=== PATIENT | female | born 1970 | race Caucasian/White ===

== ENCOUNTER 2016-11-24 23:09 | Emergency (ER) | payer BC ==
[~2016-11-24 23:09] MED LIST: CIPRO500 MG PO; COLACE100 MG PO; FLAGYL500 MG PO; HYDROCHLORATHIAZIDE; HYDROCHLOROTHIA25 MG PO; LISINOPRIL; LISINOPRIL10 MG PO; NORCO 5/325 TAB1 TAB PO; NORCO 5/3251 TA1 PO; PRENATAL1 EACH PO; VOLTAREN75 MG PO
[2016-11-24] MEDS ORDERED: HYDROCHLOROTHIA25 M1 PO (23:18)
[2016-11-24] MEDS ORDERED: ACTIGALL300 M1 PO (23:19)
[2016-11-24] MEDS ORDERED: NEURONTIN300 M1 PO (23:19)
[2016-11-24] MEDS ORDERED: AMBIEN5 M1 PO (23:20)
[2016-11-24] MEDS ORDERED: TRAZODONE HCL100 M1 PO (23:20)
[2016-11-24] MEDS ORDERED: OMEPRAZOLE40 M2 PO (23:20)
[2016-11-24] MEDS ORDERED: FIORICET 50-301 EAC1 PO (23:21)
[2016-11-25 00:48] LABS: BASO % 0.2 % (0-2); EOS % 0.5 % (0-7); EOSINOPHIL ABSOLUTE COUNT 0.1 tho/cmm (0.0-0.7); HCT-HEMATOCRIT 45.7 % (34.0-49.0); HGB-HEMOGLOBIN 16.1 gm/dl (12.0-15.5); IMMATURE GRANULOCYTES ABSOLUTE 0.06 tho/cmm (0-0.03); IMMATURE GRANULOCYTES PERCENT 0.3 % (0-0.3); LYMPH % 10.2 % (20-45); MCH (MEAN CORPUSCULAR HGB) 30.9 pg (28.0-32.0); MCHC MEAN CORPUSCULAR HGB CONC 35.2 % (32.0-36.0); MCV (MEAN CELL VOLUME) 87.7 fl (82.0-96.0); MEAN PLATELET VOLUME 9.8 cmc (9.4-12.4); MONO % 7.4 % (0-12); MONOCYTE ABSOLUTE COUNT 1.5 tho/cmm (0.0-1.2); NEUTROPHIL ABSOLUTE COUNT 15.9 tho/cmm (1.6-8.0); NEUTROPHIL-AUTOMATED 15.9 tho/cmm (1.6-8.0); NEUTROPHILS % 81.4 % (40-80); PLATELET COUNT 291 tho/cmm (150-450); RED BLOOD COUNT 5.21 mil/cmm (4.00-5.20); RED CELL DISTRIBUTION WIDTH 12.9 % (12.4-16.4); WHITE BLOOD COUNT 19.6 tho/cmm (4.0-10.0)
[2016-11-25 01:02] LABS: ALB/GLOB RATIO 1.5 (0.8-2.0); ALBUMIN 4.8 g/dl (3.5-5.0); ALKALINE PHOSPHATASE 132 U/L (33-138); ALT/SGPT 27 U/L (12-78); ANION GAP 12 mmol/L (0-20); AST/SGOT 29 U/L (10-40); BILIRUBIN,TOTAL 0.4 mg/dl (0-1.5); BLOOD UREA NITROGEN 16 mg/dl (6-24); CALCIUM 9.9 mg/dl (8.5-10.5); CARBON DIOXIDE-VENOUS 26 mmol/L (22-32); CHLORIDE 104 mmol/l (96-110); CREATININE 1.18 mg/dl (0.50-1.10); GLUCOSE 124 mg/dL (70-110); LIPASE 122 U/L (73-393); POTASSIUM 3.2 mmol/L (3.7-5.1); SODIUM 139 mmol/L (135-145); eGFR VALUE FOR BLACK 64 mL/Min
[2016-11-25] MEDS ORDERED: ZOFRAN ODT4 MG PO (02:46)
== END 2016-11-25 02:56 ==
LOC: EDMED 23:09
PROVIDERS: Emergency Medicine
DX: K29.00 Acute gastritis without bleeding (principal); Z90.49 Acquired absence of other specified parts of digestive tract; Z90.710 Acquired absence of both cervix and uterus; Z90.89 Acquired absence of other organs
CPT/HCPCS: J2270; J2405; J7030; Q9967